=== PATIENT | male | born 1975 | race Two or more races ===

== ENCOUNTER 2022-01-28 04:03 | Day surgery (SDC) | payer BC ==
[2022-01-23 11:15] VITALS: BMI 40.8
[2022-01-28 06:22] VITALS: TEMP 97.3
[2022-01-28] MEDS ORDERED: MIDAZOLAM HCL 2 MG/2 ML SINGLE DOSE VIAL ONE (07:25)
[2022-01-28 10:05] VITALS: BP 140/90; PULSE 100
== END 2022-01-28 09:40 | disposition home or self-care (01) ==
LOC: JASU-SURG 04:03
PROVIDERS: ATTEND Urology
PROC: 0TF4XZZ Fragmentation in Left Kidney Pelvis, External Approach (ICD-10-PCS; principal; 2022-01-28 08:00)
DX: N20.0 Calculus of kidney (principal); I10 Essential (primary) hypertension; E11.9 Type 2 diabetes mellitus without complications; Z79.84 Long term (current) use of oral hypoglycemic drugs
CPT/HCPCS: 82962